=== PATIENT | female | born 1985 | race Caucasian/White ===

== ENCOUNTER 2020-09-06 15:25 | Emergency (ER) | payer MEDICAID, SELFPAY ==
[2020-09-06 15:26] VITALS: BP 159/110; PULSE 91; RESP 16; TEMP 35.8; O2SAT 97; BMI 38.4
--- NOTE | 2020-09-06 15:52 | CT_ITS ---
STUDY: CT ABDOMEN AND PELVIS WITH CONTRAST REASON FOR EXAM: Female, 35 years old. Abdomen pain and cramping x 2 months, nausea now RADIATION DOSAGE (If Supplied By Facility): CTDIvol = ( 15.41 ) mGy, DLP = ( 1331.84 ) mGycm TECHNIQUE: Transaxial images were obtained from the dome of the diaphragm to the symphysis pubis without oral contrast. IV 100mL Isovue-300 was administered. Sagittal and coronal images were reconstructed. Individualized dose optimization techniques were used for this CT. COMPARISON: None. FINDINGS: The visualized lung bases are unremarkable. The visualized portions of the heart are within normal limits. Normal liver. Normal gallbladder and extrahepatic biliary system. Normal spleen. Normal pancreas. Normal bilateral adrenal glands. Normal right kidney. Normal left kidney. Normal visualized stomach. Normal small intestine. Normal colon. The appendix is visualized and appears normal. Normal abdominal aorta. Normal inferior vena cava. Normal retroperitoneum. Normal urinary bladder. Normal abdominal wall. Normal osseous structures. CT/Abdomen/Pelvis W IV Cont ONLY IMPRESSION: Normal enhanced CT of the abdomen and pelvis. Electronically Signed: Rosaline Lutz MD at 19:46 EST , Service support ,
--- NOTE | 2020-09-06 15:53 | ED.DCSUM_ITS ---
History of Present Illness Chief Complaint: Abd Pain Informant: Patient Narrative: 35-year-old female with no significant past medical history presents with concern for lower abdominal pain. States it began 2 months ago. Initially was intermittent but sharp in nature. Was seen by her [employer]ER twice with a negative urine as well as 2 - exams. Patient did somewhat recently have a reactive lymph node which she had ultrasounds of in her right groin which were negative for any acute process. States that her [employer]ER was going to order a transvaginal ultrasound following her next period. States that she continues to have pain and is concerned. Denies any vaginal discharge or bleeding. Last menstrual period was 2 weeks ago. Past Medical History - Allergies and Home Meds Allergies/Adverse Reactions: Allergies kiwi Allergy (Verified 05/02/16 22:15) Rash Primary Care Physician: Serene Luevano MD [STAFF PHYSICIAN] - Prior records reviewed: Yes Past Medical History: None Surgical History: - - c section x 2 Lives: With Family Smoking Status: Never smoker Alcohol: None Drugs: None Review of Systems General: Denies: Chills, Fever, Sweats Eyes: Denies: Visual changes - bilaterally, Diplopia ENT: Denies: Rhinorrhea, Sore throat Cardiovascular: Denies: Chest pain, Palpitations Respiratory: Denies: Dyspnea, Cough, Dyspnea on exertion Gastrointestinal: Reports: Abdominal pain. Denies: Nausea, Vomiting, Diarrhea, Melena, Hematochezia Genitourinary: Denies: Dysuria, Hematuria, Frequency Musculoskeletal: Denies: Back pain, Extremity Pain Skin: Denies: Rash, Wounds Neurological: Denies: Headache, Weakness, Numbness Physical Exam Vital Signs/Narrative: Vital Signs Temp Pulse Resp BP Pulse Ox 09/06/20 15:26 96.4 F L 91 16 159/110 H 97 General: Well nourished, Well developed, No Acute Distress Head: Normocephalic, Atraumatic Eyes: Perrl, EOMI ENT: Moist mucous membranes, No rhinorrhea Neck: Supple, Nontender Cardiovascular: Regular rate, Regular rhythm, No murmurs Respiratory: No distress, CTA bilaterally, Chest nontender Abdomen: Soft, Nondistended, Normal bowel sounds, - - RLQ TTP. Back: Nontender, Normal Inspection Extremities: Nontender, No edema Skin: Normal color, No rash Neurological: Alert, Oriented x3, Cranial nerves II-XII grossly intact, Normal Strength, Normal Sensation Psychological: Normal affect, Normal Mood Diagnostic/Tx/Re-eval Laboratory Data 09/06/20 09/06/20 09/06/20 16:00 16:00 16:04 WBC 5.1 RBC 4.41 Hgb 12.9 Hct 39.0 MCV 88.4 MCH 29.3 MCHC 33.1 RDW Std Deviation 40.4 RDW Coeff of Barbara 12.6 Plt Count 231 MPV 9.7 Immature Gran % (Auto) 0.400 Neut % (Auto) 55.6 Lymph % (Auto) 32.3 [place] % (Auto) 8.8 Eos % (Auto) 2.5 Baso % (Auto) 0.4 Absolute Neuts (auto) 2.8 Absolute Lymphs (auto) 1.65 Nucleated RBC % 0 Sodium 141 Potassium 4.2 Chloride 110 H Carbon Dioxide 31.0 Anion Gap 0 L BUN 10 Creatinine 0.65 Estim Creat Clear Calc 123.84 Est GFR (MDRD) Af Amer 132 Est GFR (MDRD) Non-Af 109 BUN/Creatinine Ratio 15.4 Glucose 86 Calcium 8.6 Total Bilirubin 0.40 AST 26 ALT 37 Alkaline Phosphatase 46 Total Protein 6.6 Albumin 3.4 Globulin 3.2 Albumin/Globulin Ratio 1.1 Lipase 92 Urine Color Yellow Urine Clarity Clear Urine pH 6.5 Ur Specific [place] 1.010 Urine Protein Negative Urine Glucose (UA) Normal Urine Ketones Negative Urine Occult Blood 25 H Urine Nitrite Negative Urine Bilirubin Negative Urine Urobilinogen Normal Ur Leukocyte Esterase 25 H Urine RBC 0-5 SEEN Urine WBC 0-5 SEEN Ur Squamous Epith Cells 0-5 SEEN Urine Bacteria RARE Urine Mucus 0 SEEN Urine Test Negative - Medical Decision Making Appears well nontoxic. Vital signs within normal limits. Lab work within normal limits. CT pending. Given a negative CT as well as transvaginal ultrasound patient will be asked to follow-up with her [employer] as well as primary care. Patient signed out to Dr. Odom. ED Disposition - Plan for ED Patient: Referrals: Serene Luevano MD [STAFF PHYSICIAN] -
[2020-09-06 16:24] LABS: Mucous, Urine 0 SEEN /hpf (<or=2+)
[2020-09-06 16:30] LABS: Absolute Lymphocyte Count 1.65 X10^3/uL (0.83-4.51); Absolute Neutrophil Count 2.8 X10^3/uL (2.0-7.7); Basophil# 0.02 X10^3/uL; Basophil% 0.4 % (0-1); Eosinophil# 0.13 X10^3/uL; Eosinophils% 2.5 % (0-5); Hemoglobin 12.9 g/dL (12.0-15.0); Lymphocyte # 1.65 X10^3/ul (4.0); Lymphocyte % 32.3 % (19-41); Mean Corp Hgb Conc 33.1 g/dL (32-36); Mean Corpuscular Hgb 29.3 pg (27.0-32.0); Mean Corpuscular Volume 88.4 fL (81-99); Mean Platelet Vol. 9.7 fl (6.2-12.0); Monocyte# 0.45 X10^3/uL; Monocyte% 8.8 % (0-10); NRBC Flagged by Analyzer 0 % (0-5); Neutrophil # 2.84 X10^3/uL (2.7-7.7); Neutrophil % 55.6 % (47-70); Platelet Count 231 K/mm3 (150-450); RBC Distribution Width CV 12.6 % (11.6-14.6); RBC Distribution Width SD 40.4 fl (35.1-43.9); Red Blood Count 4.41 M/mm3 (4.2-5.4); White Blood Count 5.1 K/mm3 (4.4-11.0)
[2020-09-06 16:44] LABS: Color, Urine Yellow (Yellow); Glucose, Dipstick Normal (Normal); Ketone-Dipstick Negative (Negative); Leukocyte Esterase-Dipstick 25 /ul (Negative); Nitrite-Dipstick Negative (Negative); Occult Blood-Urine 25 /ul (Negative); Protein-Dipstick Negative (Negative); Urine Bilirubin Dipstick Negative (Negative); Urine Clarity Clear (Clear); Urine Urobilinogen Normal (Normal); Urine pH 6.5 (5.0 - 8.0)
[2020-09-06 16:48] LABS: ALB/GLOB Ratio 1.1 RATIO (0.9-2.4); AST(SGOT) 26 U/L (15-37); Alanine Aminotransfer ALT/SGPT 37 U/L (13-56); Albumin, Serum 3.4 g/dL (3.2-5.0); Alkaline Phosphatase 46 U/L (45-117); Anion Gap 0 (5-15); BUN 10 mg/dL (7-18); BUN/Creat Ratio 15.4 RATIO (10-20); Calcium,Total 8.6 mg/dL (8.5-10.1); Chloride 110 mmol/L (98-107); Creatinine, Serum 0.65 mg/dL (0.55-1.02); EST Glomerular Filtration Rate 109 mL/min (>60); Est Glom Filt Rate - Afr Amer 132 mL/min (>60); Estimated Creatinine Clearance 123.84 ml/min; Globulin 3.2 g/dL (2.2-4.2); Glucose 86 mg/dL (74-106); Lipase 92 U/L (73-393); Potassium 4.2 mmol/L (3.5-5.1); Protein, Total 6.6 g/dL (6.4-8.2); Sodium Level 141 mmol/L (136-145)
[2020-09-06 17:14] LABS: Bacteria RARE /hpf (None Seen); Red Blood Cells-Urine 0-5 SEEN /hpf (0-5); Squamous Epithelial Cells - UA 0-5 SEEN /hpf (5-10); White Blood Cells 0-5 SEEN /hpf (0-5)
[2020-09-06 17:15] LABS: Internal QC Validated? YES +Cl - CLEAR BKGD; Pregnancy, Urine Negative Negative
--- NOTE | 2020-09-06 20:01 | US_ITS ---
STUDY: ULTRASOUND TRANSVAGINAL CLINICAL: Female, 35 years old. PELVIC PAIN TECHNIQUE: Transvaginal real-time exam with grayscale images documentation. COMPARISON: None. FINDINGS: The uterus is anteverted in midline measuring 9.0 x 5.8 x 5.1 cm. Normal endometrial thickness measuring 8 mm. There are no endometrial masses, and there is no fluid in the endometrial cavity. Nabothian cyst of the cervix. The right ovary measures 2.7 x 2.1 x 1.5 cm. There is a septated cyst or cyst within a cyst measuring 1.1 x 1.2 x 0.8 cm. Normal DOPPLER. The left ovary is 3.7 x 2.9 x 2.2 cm. There is a 2.0 x 1.8 x 1.0 cm cyst of the left ovary. Normal DOPPLER. Minimal free fluid. Polycystic ovary disease: No. US/Transvaginal Non- IMPRESSION: Normal uterus. Normal size of the right ovary with normal DOPPLER flow. Cyst within a cyst measuring 1.1 x 1.2 x 0.8 cm consistent with a stimulated or dominant follicle. Normal size of the left ovary with normal DOPPLER flow. 2.0 x 1.8 x 1.0 cm simple cyst of the left ovary. No additional adnexal masses, minimal free fluid. Electronically Signed: Rosaline Lutz MD at 21:34 EST , Service support ,
--- NOTE | 2020-09-06 21:52 | ED.DEP ---
ED Disposition - Plan for ED Patient: Instructions: ED Abdominal Pain Unkn Cause Fem Referrals: Serene Luevano MD [STAFF PHYSICIAN] -
[2020-09-06 22:11] VITALS: RESP 17
== END 2020-09-06 22:12 | disposition home or self-care (01) ==
LOC: ED 16:26
PROVIDERS: Emergency Provider Emergency Medicine; PCP Physician Assistant
DX: N83.292 Other ovarian cyst, left side (principal)
CPT/HCPCS: 74177; 76830; 80053; 81001; 81025; 83690; 85025; 93976; 99283; Q9967; A4216

== ENCOUNTER 2020-11-03 15:31 | Emergency (ER) | payer MEDICAID, SELFPAY ==
[2020-11-03 15:33] VITALS: BP 152/92; PULSE 73; RESP 16; TEMP 36.4; O2SAT 100; BMI 38.7
--- NOTE | 2020-11-03 15:53 | VDLE_ITS ---
Reason For Study: PAIN RIGHT GSV is normal. CFV is compressible, spontaneous, phasic, competent and demonstrates normal augmentation. FV is compressible, spontaneous, phasic, competent and demonstrates normal augmentation. POP V is compressible, spontaneous, phasic, competent and demonstrates normal augmentation. T/P Trunk is compressible. PTV is compressible. RT PerV is compressible. Procedure Exam performed portable in ED. The study was technically difficult. A preliminary report was called and/or faxed to ED. Interpretation Summary Deep veins of the right lower extremity are patent and compressible segmentally. There is no evidence of right lower extremity deep vein thrombosis. Valvular competence appears intact within the proximal deep venous system on the right . The right great saphenous vein appears patent and compressible segmentally. Ordering Physician: Eric Encinas Referring Physician: GOMEZ HOOKS Performed By: Natividad Harding, LISA, RVT
--- NOTE | 2020-11-03 16:00 | RAD_ITS ---
STUDY: X-RAY - RIGHT TIBIA AND FIBULA REASON FOR EXAM: Female, 35 years old. Right lower leg pain. TECHNIQUE: view(s) of the tibia and fibula were obtained. COMPARISON: None. FINDINGS: Normal visualized tibia. Normal visualized fibula. The soft tissue structures are unremarkable. RAD/Tibia & Fibula 2 Views IMPRESSION: No abnormality of the right tibia or fibula. Electronically Signed: Dain Cotton MD at 16:16 EST , Service support ,
--- NOTE | 2020-11-03 16:18 | ED.VIS.GEN ---
History of Present Illness Chief Complaint: Lower Extremity Injury Informant: Patient Narrative: 35-year-old female presents with right lateral leg pain of 1 months duration. She points to the mid to proximal lateral muscle bellies as the source of the area that bothers her. She states in the past couple days it seems to be spreading proximally up towards her knee. She denies any injury. No swelling. She messaged her doctor and they can see her Friday. Because the pain seemed to change in its location she wanted to come and be seen so she went to urgent care and they recommend her coming to emergency out of concern for DVT. Patient with no rashes. No DVT PE risk factors. No trauma. Past Medical History - Allergies and Home Meds Allergies/Adverse Reactions: Allergies kiwi Allergy (Verified 11/03/20 15:56) Rash Primary Care Physician: Lamar Tam PA [Primary Care Provider] - Surgical History: - - c section x 2 Smoking Status: Never smoker Drugs: None Review of Systems General: Denies: Chills, Fever, Sweats Eyes: Denies: Visual changes - bilaterally, Diplopia ENT: Denies: Rhinorrhea, Sore throat Cardiovascular: Denies: Chest pain, Palpitations Respiratory: Denies: Dyspnea, Cough, Dyspnea on exertion Gastrointestinal: Denies: Abdominal pain, Nausea, Vomiting, Diarrhea, Melena, Hematochezia Genitourinary: Denies: Dysuria, Hematuria, Frequency Musculoskeletal: Reports: Extremity Pain. Denies: Back pain, Swelling Skin: Denies: Rash, Wounds Neurological: Denies: Headache, Weakness, Numbness Physical Exam Vital Signs/Narrative: Vital Signs Temp Pulse Resp BP Pulse Ox 11/03/20 15:33 97.6 F L 73 16 152/92 H 100 Inital Vital Signs reviewed: Yes General: Well nourished, Well developed, Obese, No Acute Distress Head: Normocephalic, Atraumatic Eyes: Perrl, EOMI ENT: Moist mucous membranes, No rhinorrhea Neck: Supple, Nontender Cardiovascular: Regular rate, Regular rhythm, No murmurs Respiratory: No distress, CTA bilaterally, Chest nontender Abdomen: Soft, Nontender, Nondistended, Normal bowel sounds Back: Nontender, Normal Inspection Extremities: Nontender, No edema, - - I appreciate no knee exam findings. There is no cords. No significant tenderness on palpation. No swelling between the 2 extremities. No rashes Skin: Normal color, No rash Neurological: Alert, Oriented x3, Cranial nerves II-XII grossly intact, Normal Strength, Normal Sensation Psychological: Normal affect, Normal Mood Diagnostic/Tx/Re-eval Clinical Impression(s) from Imaging Studies Tibia/Fibula X-Ray 11/03/20 16:00 IMPRESSION: No abnormality of the right tibia or fibula. Electronically Signed: Dain Cotton MD at 16:16 EST , Service support , - Medical Decision Making My interpretation of the 2 view tib-fib x-rays are negative for acute. Duplex ultrasound is negative for DVT. Patient was advised to arrange follow-up with her doctor. If continued symptoms she may benefit from MRI of the lower extremity looking for discrete muscle pathology. ED Disposition - Plan for ED Patient: Disposition: Home or Assisted Living Diagnosis: Right leg pain Instructions: ED Pain, Acute, Uncertain Cause Referrals: Lamar Tam, PA [Primary Care Provider] - As soon as possible
== END 2020-11-03 16:43 | disposition home or self-care (01) ==
PROVIDERS: Emergency Provider Emergency Medicine; PCP Physician Assistant
DX: M79.604 Pain in right leg (principal); E66.9 Obesity, unspecified
CPT/HCPCS: 73590; 93971; 99282

== ENCOUNTER → 2021-03-28 15:08 | Outpatient (CLI) | payer MEDICAID, SELFPAY | PROVIDERS: PCP Physician Assistant; Visit Provider Otolaryngology Otolaryngology/Facial Plastic Surgery | DX: J02.9 Acute pharyngitis, unspecified (principal) | CPT/HCPCS: 87070 ==

== ENCOUNTER → 2021-09-04 09:26 | Outpatient (CLI) | payer MEDICAID, SELFPAY ==
--- NOTE | 2021-09-04 09:30 | RAD_ITS ---
INDICATION: DYSPHAGIA EXAMINATION/TECHNIQUE: Barium oral contrast and gas bubbles were administered to the patient. Total Fluoroscopic Time: 1 minute 10 seconds AND number of Fluoroscopic Images: 13 spot images and 20 cine clip images COMPARISON: None. FINDINGS: No masses or strictures are identified. There is no hiatal hernia. The mucosal pattern is unremarkable. There is normal motility. Reflux was not elicited. RAD/Esophagus Single Contrast IMPRESSION: No significant findings. Electronically Signed: Presley Shultz MD at 15:45 EST Tel , Service support ,
== END ==
PROVIDERS: PCP Physician Assistant; Referring Provider Otolaryngology Otolaryngology/Facial Plastic Surgery; Visit Provider Otolaryngology Otolaryngology/Facial Plastic Surgery
DX: R13.10 Dysphagia, unspecified (principal)
CPT/HCPCS: 74220

== ENCOUNTER 2022-06-06 05:52 | Day surgery (SDC) | payer MEDICAID, SELFPAY ==
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
[2022-06-06 06:31] LABS: Hematocrit 39.1 % (37-47); Hemoglobin 12.9 g/dL (12.0-15.0); Mean Corpuscular Hgb 29.3 pg (27.0-32.0); Mean Corpuscular Volume 88.7 fL (81-99); Mean Platelet Vol. 9.5 fl (6.2-12.0); Platelet Count 211 K/mm3 (150-450); RBC Distribution Width CV 12.3 % (11.6-14.6); RBC Distribution Width SD 39.7 fl (35.1-43.9); Red Blood Count 4.41 M/mm3 (4.2-5.4)
[2022-06-06 06:34] LABS: Internal QC Validated? YES +Cl - CLEAR BKGD; Pregnancy, Urine Negative Negative
[2022-06-06 06:35] VITALS: BP 149/96; PULSE 69; RESP 16; TEMP 36.7; O2SAT 98; BMI 42.3
[2022-06-06] MEDS: Lactated Ringers 1,000 ML 15 ML IV ×2 (06:43→08:55)
[2022-06-06 06:49] LABS: Anion Gap 6 (5-15); BUN 14 mg/dL (7-18); BUN/Creat Ratio 20.6 RATIO (10-20); Calcium,Total 8.9 mg/dL (8.5-10.1); Chloride 109 mmol/L (98-107); Creatinine, Serum 0.68 mg/dL (0.55-1.02); EST Glomerular Filtration Rate 103 mL/min (>60); Est Glom Filt Rate - Afr Amer 124 mL/min (>60); Estimated Creatinine Clearance 112.05 ml/min; Glucose 126 mg/dL (74-106); Potassium 3.6 mmol/L (3.5-5.1); Sodium Level 142 mmol/L (136-145)
--- NOTE | 2022-06-06 07:30 | FALS_PTH ---
PATIENT: NAM ALEJANDRO LOC: [facility] [place] U#:[id number] AGE/SX: 37/F ROOM: RE06/06/[address]: Dr. Suni Kaba, MDDOB: 1985 BED: DIS: 06/06/2022 SPEC #: [id number] RECD: 06/06/22 09:53 STATUS: DHARA MULLINSMartínez #: [id number] ARUNA: 06/06/22 07:[address]: Suni Kaba DEPT: SURGICAL PATHOLOGY RECD BY: Larissa Whitehead ENTERED: 06/06/22 11:10 SP TYPE: FALL TUBES OTHR DR: MARIFER Corrales Tissues: Fallopian tube Procedures: Surgery Specimen Level II HEADER OPERATION: Laparoscopic salpingectomy PRE-OP DIAGNOSIS: Elective sterilization TISSUE SUBMITTED: Bilateral fallopian tubes MICROSCOPIC DIAGNOSIS Bilateral fallopian tubes, salpingectomy: Bilateral fallopian tubes, no pathologic diagnosis. GRIFFIN:jose 06/07/2022 MICROSCOPIC DESCRIPTION Slides are reviewed. GROSS DESCRIPTION Received in fixative is one container labeled with the patient's name and designated bilateral fallopian tubes. The specimen consists of bilateral fallopian tubes including fimbrial ends. One fallopian tube measures 7 cm in length and 0.5 cm in diameter. The second fallopian tube is received in multiple pieces and proximal end measures 5 cm in length and 0.5 cm in diameter. The distal end with fimbrial end measures 2.5 cm in length and 0.5 cm in diameter. Two detached fragments of fimbrial ends are also noted measuring in aggregate 1 x 0.7 x 0.2 cm. The fallopian tubes are not identified as right or left. Sections reveal unremarkable cut surfaces. [place] sections are submitted in two cassettes as follows: 1 ? intact fallopian tube, 2 ? second fallopian tube in multiple pieces. / GRIFFIN:jose 06/06/2022 TC:4 CPT: 59330 x2
[2022-06-06] MEDS: Bupivacaine 0.25% 30 ML Vial (08:33)
--- NOTE | 2022-06-06 08:35 | PCM.OPRPT ---
Report of Operation Date of Procedure: 06/06/22 Pre-Operative Diagnosis: Desires sterilization Post-Operative Diagnosis: same, left ovarian cyst Surgery/Procedure Performed:: Laparoscopic bilateral salpingectomy Description of Surgical Findings:: Left complex appearing cyst approximately 5cm. Surgeon: Suni Kaba explosives mixer operator: None Type of Anesthesia: General, Local and None Specimen's removed: bilateral fallopian tubes Drains: none Estimated Blood Loss (mL): 5 Fluids Replaced: 1000 Description of Procedure: After informed consent was obtained patient was taken to the operating room she was placed in supine position she was given anesthesia. She was then placed in the [facility] stirrups and she was prepped and draped in normal sterile fashion. Bladder was drained prior to the start of procedure. At this time attention was turned to the vaginal portion where weighted speculum placed at posterior fornix vagina single-tooth tenaculum was used to gently grasp the internal the cervix. uterus was gently sounded to approximately 8 cm. Uterine manipulator was placed without difficulty. Legs then placed in parallel with the abdomen the tenaculum and the weighted speculum were removed. 2 towel clamps were placed at level of umbilicus. Marcaine was injected infraumbilical and a small incision was made. The 5 mm trocar was placed under direct visualization. CO2 gas was used to insufflate the intra-abdominal cavity. Upon inspection 5cm left ovarian complex cyst- the uterus tubes (small paratubal cyst bilaterally) appeared to be normal. At this time then the LLQ and RLQ ports were placed First Marcaine was injected and small incision was made a knife and the 5 mm trocars were placed. At this time then tubes were traced back to the fimbriated ends. Enseal was used to coagulate and ligate along mesosalpinx bilaterally until tubes removed completely. Good hemostasis was appreciated. At this time procedure was deemed complete successful. The gas was desufflated on from the intra-abdominal cavity. The trochars were removed. Skin was closed using 4-0 Monocryl in a subcutaneous fashion. Dermabond glue was placed. Instrument lap and needle counts were correct ?2. The uterine manipulator was removed. Vaginal sweep was performed it was negative. There were no complications anticipated normal postoperative course for this patient. Grafts/Implants Used: none Procedure Start Time: 08:12 Procedure Stop Time: 08:34 Complications none Admit VTE Documentation VTE Present on Admission: Yes VTE Mechan Device Prophylaxis: SCD's VTE Pharm Prophylaxis ordered?: No Reason prophylaxis not ordered:: Procedure Not Indicated
--- NOTE | 2022-06-06 08:39 | DCINST_ITS ---
Discharge Instructions Procedure Other Diet Discharge Diet: No restrictions Activity May resume sexual activity in: 2 weeks Lifting Restrictions: 20-25 lbs Dressing / Incision Call your doctor if your incision/area has: Continuous Slow Oozing, Sudden Increased Bleeding, Increased Pain/ Swelling, Increased Redness, Foul Smelling Discharge and Swelling at the incision site Call your doctor if you observe: Fever of 101 or Higher, Inability to urinate, Inability to have a bowel movement, Using more than 1 pad per hour and Uncontrolled pain Additional Dressing/Incision Instructions:: You have skin glue over your incision sites, do not pick off. You may shower and let the soap and water run over the incision sites and dab dry. Follow Up Care Please Follow Up With: Suni Kaba MD When: 1-2 weeks post OP if you need an appointment please call [phone] Test Results: Test results from this visit will be discussed in further detail at your follow- up appointment, if applicable. Discharge Plan Admission Attending Provider: Suni Kaba Primary Care Provider: Lamar Tam Discharge Orders/Prescriptions Prescriptions: No Action Therems-M 1 TABLET tablet 1 tab PO DAILY lisinopril 20 MG tablet 30 mg PO QHS sertraline 100 MG tablet 200 mg PO QHS hydrochlorothiazide 12.5 MG capsule 12.5 mg PO DAILY Cholecalciferol (Vitamin D3) [Vitamin D3] 5,000 UNIT capsule 1 cap PO DAILY fluticasone propion-salmeterol [Advair Diskus] 250-50 mcg/dose blister with d evice 1 inh INHALATION BID Label Comments: INHALE 1 PUFF DIRECTED TWICE DAILY aspirin 325 mg Tablet 325 mg PO QHS selenium 200 mcg Tablet 200 mcg PO DAILY ascorbic acid (vitamin C) [Vitamin C] 500 mg Tablet 500 mg PO DAILY pantoprazole 40 mg tablet,delayed release (DR/EC) 40 mg PO BID Label Comments: take 1 tablet by mouth twice a day BEFORE MEALS.TAKE ON AN EMPTY STOMACH, 30 MINUTES BEFORE A MEAL buspirone 10 mg tablet 15 mg PO BID Label Comments: take 1 tablet by mouth three times a day zinc 50 mg Tablet 50 mg PO DAILY topiramate 100 mg tablet 100 mg PO DAILY Probiotic 10 billion cell Capsule 10,000 mmu cells PO DAILY Referrals / Follow Up: Tam,M Alonso PA, PA [Primary Care Provider] - Disposition Disposition (needs filled in before D/C Order can be placed): Home, Self Care
[2022-06-06 08:50] VITALS: BP 149/96; BP 167/90; PULSE 89; RESP 18; TEMP 36.4; O2SAT 90
[2022-06-06 09:00] VITALS: BP 149/96; BP 161/85; PULSE 78; RESP 16; O2SAT 93
[2022-06-06 09:02] VITALS: BP 149/96; PULSE 70; RESP 16; TEMP 36.4; O2SAT 93
[2022-06-06 09:09] VITALS: BP 149/96; BP 153/86; PULSE 65; RESP 18; TEMP 36.4; O2SAT 93
[2022-06-06 09:46] VITALS: BP 148/86; BP 149/96; PULSE 71; RESP 18; TEMP 36.3; O2SAT 95
== END 2022-06-06 09:58 | disposition home or self-care (01) ==
LOC: SDC 05:53 → AC 05:54
PROVIDERS: Anesthesiology; PCP Physician Assistant; Referring Provider Obstetrics & Gynecology; Visit Provider Obstetrics & Gynecology
PROC: (CPT 58661; principal; 2022-06-06 07:15)
DX: Z30.2 Encounter for sterilization (principal); N83.202 Unspecified ovarian cyst, left side; I10 Essential (primary) hypertension; Z86.73 Personal history of transient ischemic attack (TIA), and cerebral infarction without residual deficits
CPT/HCPCS: 58661; 00840; 80048; 81025; 85027; 88302; J7120; C1760; J2405

== ENCOUNTER 2022-06-29 08:48 | Emergency (ER) | payer MEDICAID, SELFPAY ==
[2022-06-29 08:49] VITALS: BP 148/109; PULSE 80; RESP 18; TEMP 36.3; O2SAT 96; BMI 41.3
[2022-06-29 08:52] VITALS: BP 151/87; PULSE 80; RESP 18; TEMP 36.3; O2SAT 96
--- NOTE | 2022-06-29 09:17 | US_ITS ---
STUDY: RENAL ULTRASOUND - COMPLETE REASON FOR EXAM: Female, 37 years old. hematuria TECHNIQUE: Ultrasound evaluation of the kidneys was performed with real-time and static christopher-scale imaging. COMPARISON: None. FINDINGS: RIGHT KIDNEY: Normal location of the right kidney, which is normal in size. The right kidney measures 12.2 cm. There is a normal cortex of the right kidney. The renal cortex measures 2.5 cm. There is no right renal mass or cyst. There are no right renal calculi. There is no right hydronephrosis. DISTAL RIGHT URETER: There is non-visualization of the distal right ureter. There is no demonstrated right ureterovesical junction calculus. There is a visualized right ureteral jet. LEFT KIDNEY: Normal location of the left kidney, which is normal in size. The left kidney measures 12.8 cm. There is a normal cortex of the left kidney. The renal cortex measures 2.6 cm. There is no left renal mass or cyst. There are no left renal calculi. There is no left hydronephrosis. DISTAL LEFT URETER: There is non-visualization of the distal left ureter. There is no demonstrated left ureterovesical junction calculus. There is a visualized left ureteral jet. BLADDER: The distended urinary bladder has a volume of 57 ml. The empty urinary bladder has a volume of ml. There is a normal wall thickness of the distended urinary bladder. There is no demonstrated mass within the urinary bladder. There are no demonstrated bladder calculi. US/Kidney and Bladder IMPRESSION: Normal ultrasound of the kidneys and urinary bladder. Electronically Signed: Elkin Leon MD at 10:57 EDT ,
[2022-06-29 09:30] LABS: Bacteria 0 SEEN /hpf (None Seen); Color, Urine Red (Yellow); Glucose, Dipstick Normal (Normal); Ketone-Dipstick Negative (Negative); Leukocyte Esterase-Dipstick 500 /ul (Negative); Mucous, Urine 0 SEEN /hpf (<or=2+); Nitrite-Dipstick Negative (Negative); Occult Blood-Urine 250 /ul (Negative); Protein-Dipstick 100 mg/dl (Negative); Squamous Epithelial Cells - UA 0 SEEN /hpf (5-10); Urine Bilirubin Dipstick Negative (Negative); Urine Clarity Cloudy (Clear); Urine Urobilinogen Normal (Normal)
[2022-06-29 09:38] LABS: Red Blood Cells-Urine > 100 SEEN /hpf (0-5); White Blood Cells 5-10 SEEN /hpf (0-5)
--- NOTE | 2022-06-29 09:40 | EDS_ITS ---
HPI HPI - Female History of Present Illness Chief Complaint: Abd Pain Narrative Narrative: 37-year-old female presenting with abdominal pain. She states its crampy in nature and is bilateral in the pelvis. She does not know if she is starting her period or not. Patient does report that she recently had her fallopian tubes removed by Dr. Vizcarra. This was on 06/06/2022. Patient also had upper and lower endoscopy performed 05/10/[address] Blanco. Patient states that she had problems in the past with abdominal pain and she states that she would previously come to the ER and have multiple CAT scans which she does not want to have anymore this is why she has been having these procedures done. She states that she had a lot of radiation exposure in the past. Today she is stating that she felt unwell last evening and took a hot bath and this morning woke up with blood in her urine. She does not have any history of kidney stones. She does not have dysuria. She is not describing flank pain but does state that she gets sweaty and nauseous sometimes. [facility] Medical History Anxiety Asthma Back pain Contact with and (suspected) exposure to other viral communicable diseases Gastric reflux History of echocardiogram History of IBS History of steroid therapy Hypertension Injury of head and neck Non-smoker TIA (transient ischemic attack) URI (upper respiratory infection) Wears glasses Home Medications multivitamin,[id number]-[id number] 27 mg-0.4 mg tablet (Therems-M) 1 tab PO DAILY 04/07/15 [History Last Taken Unknown] lisinopril 20 mg tablet 30 mg PO QHS 04/12/16 [History Last Taken Unknown] Cholecalciferol (Vitamin D3) [Vitamin D3] 1 cap PO DAILY 11/03/20 [History Last Taken Unknown] hydrochlorothiazide 12.5 mg capsule 12.5 mg PO DAILY 11/03/20 [History Last Taken Unknown] sertraline 100 mg tablet 200 mg PO QHS 11/03/20 [History Last Taken Unknown] Lactobacillus acidophilus 10 billion cell capsule (Probiotic) 10,000 mmu cells PO DAILY 05/29/22 [History Last Taken Unknown] ascorbic acid (vitamin C) 500 mg tablet (Vitamin C) 500 mg PO DAILY 05/29/22 [History Last Taken Unknown] aspirin 325 mg tablet 325 mg PO QHS 05/29/22 [History Last Taken Unknown] buspirone 10 mg tablet 15 mg PO BID 05/29/22 [History Last Taken Unknown] fluticasone 250 mcg-salmeterol 50 mcg/dose blistr powdr for inhalation (Advair Diskus) 1 inh inhalation BID 05/29/22 [History Last Taken Unknown] pantoprazole 40 mg tablet,delayed release 40 mg PO BID 05/29/22 [History Last Taken Unknown] selenium 200 mcg tablet 200 mcg PO DAILY 05/29/22 [History Last Taken Unknown] topiramate 100 mg tablet 100 mg PO DAILY 05/29/22 [History Last Taken Unknown] zinc 50 mg tablet 50 mg PO DAILY 05/29/22 [History Last Taken Unknown] phenazopyridine 200 mg tablet (Pyridium) 200 mg PO TID PRN pain 6 doses #6 tabs 06/29/22 [Rx Last Taken Unknown] Allergy/AdvReac Type Severity Reaction Status Date / Time kiwi Allergy Rash Verified 06/29/22 08:52 Surgical History Hx of brain surgery Hx of section Hx of colonoscopy Social History Smoking Status: Never smoker EXAM Physical Exam Const Vital Signs: 06/29/22 08:49 06/29/22 08:52 06/29/22 11:34 Temperature 97.4 F L 97.4 F L 97.8 F Temperature Source Temporal Temporal Temporal Pulse Rate 80 80 69 Respiratory Rate 18 18 16 Blood Pressure 148/109 H 151/87 H 137/76 H Blood Pressure Mean 122 108 96 Pulse Ox 96 96 97 Oxygen Delivery Method Room Air Room Air Room Air 06/29/22 12:27 Temperature Temperature Source Pulse Rate 78 Respiratory Rate 19 H Blood Pressure 148/85 H Blood Pressure Mean 106 Pulse Ox 97 Oxygen Delivery Method Room Air Positive well nourished General Appearance ED: NAD; Negative for pallor HEENT Reports moist mucous membranes Eyes PERRL and EOMs intact bilaterally Cardio regular rate and regular rhythm GI soft to palpation Back/Spine no CVA tenderness Extremity normal to inspection Neuro oriented x3 and CN's II-XII intact bilaterally Sensorium / Orientation: alert Motor Exam: strength 5/5 throughout Psych mental status grossly normal Skin no rashes or lesions noted and no wounds General Skin Exam: Negative for jaundice or pallor MDM MDM MDM Narrative Medical decision making narrative: Due to patient's concern for radiation I did order basic lab work and a urinalysis. Her urinalysis shows hematuria without evidence of an infection. I will order an ultrasound of the kidneys?ureter?bladder. CBC and BMP are unremarkable. Ultrasound of the kidneys, ureter, bladder is normal. Patient counseled on findings. After initially not wanting a CAT scan she has more concerned and wishes to have a CAT scan of her abdomen pelvis because she feels uncomfortable. I did discuss with her that her blood work is normal. CT of the abdomen pelvis performed does show a 5.5 cm mass on the left ovary. Patient reports that she already knew of this ovarian cyst because her hospice manager thought when she did her fallopian tube removal. She is now stating that she has dysuria which started in the emergency room. Patient is counseled to follow-up with her [facility] and I gave her referral for urology. Impression: 1. Hematuria 2. Dysuria Lab Data Attestation: I reviewed the patient's lab results. Labs: Laboratory Results - last 24 hr 06/29/22 06/29/22 06/29/22 09:25 09:45 09:45 WBC 8.1 RBC 4.48 Hgb 12.8 Hct 40.0 MCV 89.3 MCH 28.6 MCHC 32.0 RDW Std Deviation 40.2 RDW Coeff of Barbara 12.4 Plt Count 281 MPV 9.4 Immature Gran % (Auto) 0.400 Neut % (Auto) 72.2 H Lymph % (Auto) 18.3 L [place] % (Auto) 7.1 Eos % (Auto) 1.5 Baso % (Auto) 0.5 Absolute Neuts (auto) 5.8 Absolute Lymphs (auto) 1.48 Nucleated RBC % 0 Sodium 143 Potassium 3.6 Chloride 107 Carbon Dioxide 29.0 Anion Gap 7 BUN 11 Creatinine 0.61 Estim Creat Clear Calc 129.40 Est GFR (MDRD) Af Amer 139 Est GFR (MDRD) Non-Af 115 BUN/Creatinine Ratio 17.9 Glucose 120 H Calcium 8.9 Urine Color Red Urine Clarity Cloudy Urine pH 6.0 Ur Specific Dunn 1.010 Urine Protein 100 H Urine Glucose (UA) Normal Urine Ketones Negative Urine Occult Blood 250 H Urine Nitrite Negative Urine Bilirubin Negative Urine Urobilinogen Normal Ur Leukocyte Esterase 500 H Urine RBC > 100 SEEN Urine WBC 5-10 SEEN Ur Squamous Epith Cells 0 SEEN Urine Bacteria 0 SEEN Urine Mucus 0 SEEN Radiography Diagnostic Testing: Clinical Impression(s) from Imaging Studies Renal Ultrasound 06/29/22 09:17 IMPRESSION: Normal ultrasound of the kidneys and urinary bladder. Electronically Signed: Elkin Leon MD at 10:57 EDT Reading Location ID and State: [id number] / [employer] , Service support , Abdomen/Pelvis CT 06/29/22 11:29 IMPRESSION: 1. No renal or ureteral stone. 2. Fatty infiltration of the liver. 3. 5.5 cm mass left ovary correlation with pelvic ultrasound may be useful. Electronically Signed: Elkin Leon MD at 12:27 EDT Reading Location ID and State: [id number] / [employer] , Service support , Discharge Plan Triage Chief Complaint: Abd Pain ED Provider: Junaid Manzanares Dx/Rx/DC Orders Instructions: ED Dysuria, Uncertain Cause (Adult), ED Hematuria Prescriptions: New phenazopyridine [Pyridium] 200 mg tablet 200 mg PO TID PRN (Reason: pain) Qty: 6 0RF No Action Therems-M 1 TABLET tablet 1 tab PO DAILY lisinopril 20 MG tablet 30 mg PO QHS sertraline 100 MG tablet 200 mg PO QHS hydrochlorothiazide 12.5 MG capsule 12.5 mg PO DAILY Cholecalciferol (Vitamin D3) [Vitamin D3] 5,000 UNIT capsule 1 cap PO DAILY fluticasone propion-salmeterol [Advair Diskus] 250-50 mcg/dose blister with device 1 inh INHALATION BID Label Comments: INHALE 1 PUFF DIRECTED TWICE DAILY aspirin 325 mg Tablet 325 mg PO QHS selenium 200 mcg Tablet 200 mcg PO DAILY ascorbic acid (vitamin C) [Vitamin C] 500 mg Tablet 500 mg PO DAILY pantoprazole 40 mg tablet,delayed release (DR/EC) 40 mg PO BID Label Comments: take 1 tablet by mouth twice a day BEFORE MEALS.TAKE ON AN EMPTY STOMACH, 30 MINUTES BEFORE A MEAL buspirone 10 mg tablet 15 mg PO BID Label Comments: take 1 tablet by mouth three times a day zinc 50 mg Tablet 50 mg PO DAILY topiramate 100 mg tablet 100 mg PO DAILY Probiotic 10 billion cell Capsule 10,000 mmu cells PO DAILY Primary Care Provider: Lamar Tam Referrals: Teresa Sue MD [Med Staff - Active Staff] - 3-5 Days Lamar Tam PA [Primary Care Provider] - Disposition Disposition: Home, Self Care
[2022-06-29 09:57] LABS: Absolute Lymphocyte Count 1.48 X10^3/uL (0.83-4.51); Absolute Neutrophil Count 5.8 X10^3/uL (2.0-7.7); Basophil# 0.04 X10^3/uL; Basophil% 0.5 % (0-1); Eosinophil# 0.12 X10^3/uL; Eosinophils% 1.5 % (0-5); Hemoglobin 12.8 g/dL (12.0-15.0); Lymphocyte # 1.48 X10^3/ul (0.83-4.51); Lymphocyte % 18.3 % (19-41); Mean Corpuscular Hgb 28.6 pg (27.0-32.0); Mean Corpuscular Volume 89.3 fL (81-99); Mean Platelet Vol. 9.4 fl (6.2-12.0); Monocyte# 0.57 X10^3/uL; Monocyte% 7.1 % (0-10); NRBC Flagged by Analyzer 0 % (0-5); Neutrophil # 5.84 X10^3/uL (2.7-7.7); Neutrophil % 72.2 % (47-70); Platelet Count 281 K/mm3 (150-450); RBC Distribution Width CV 12.4 % (11.6-14.6); RBC Distribution Width SD 40.2 fl (35.1-43.9); Red Blood Count 4.48 M/mm3 (4.2-5.4); White Blood Count 8.1 K/mm3 (4.4-11.0)
[2022-06-29 10:04] LABS: Anion Gap 7 (5-15); BUN 11 mg/dL (7-18); BUN/Creat Ratio 17.9 RATIO (10-20); Calcium,Total 8.9 mg/dL (8.5-10.1); Chloride 107 mmol/L (98-107); Creatinine, Serum 0.61 mg/dL (0.55-1.02); EST Glomerular Filtration Rate 115 mL/min (>60); Est Glom Filt Rate - Afr Amer 139 mL/min (>60); Glucose 120 mg/dL (74-106); Potassium 3.6 mmol/L (3.5-5.1); Sodium Level 143 mmol/L (136-145)
--- NOTE | 2022-06-29 11:29 | CT_ITS ---
STUDY: CT ABDOMEN AND PELVIS WITHOUT CONTRAST REASON FOR EXAM: Female, 37 years old. hematuria RADIATION DOSAGE (If Supplied By Facility): CTDIvol = ( 23.13 ) mGy, DLP = ( 1248.46 ) mGycm TECHNIQUE: Transaxial images were obtained from the dome of the diaphragm to the symphysis pubis without oral contrast, and without intravenous contrast. Sagittal and coronal images were reconstructed. Individualized dose optimization techniques were used for this CT. COMPARISON: 09/06/2020 FINDINGS: The visualized lung bases are unremarkable. The visualized portions of the heart are within normal limits. There is decreased attenuation of the liver consistent with steatosis. Normal gallbladder and extrahepatic biliary system. Normal spleen. Normal pancreas. Normal bilateral adrenal glands. Normal right kidney. Normal left kidney. Normal visualized stomach. Normal small intestine. Normal colon. The appendix is visualized and appears normal. Normal abdominal aorta. Normal inferior vena cava. Normal retroperitoneum. Normal urinary bladder. 5.5 cm mass of the left ovary and pelvic ultrasound may be useful. Normal abdominal wall. There are diffuse degenerative changes of the visualized lumbar spine. CT/Abdomen/Pelvis without Cont IMPRESSION: 1. No renal or ureteral stone. 2. Fatty infiltration of the liver. 3. 5.5 cm mass left ovary correlation with pelvic ultrasound may be useful. Electronically Signed: Elkin Leon MD at 12:27 EDT ,
[2022-06-29 11:34] VITALS: BP 137/76; PULSE 69; RESP 16; TEMP 36.6; O2SAT 97
[2022-06-29 12:27] VITALS: BP 148/85; PULSE 78; RESP 19; O2SAT 97
[2022-06-29] MEDS: Phenazopyridine 95 MG Tablet 190 MG PO (12:44)
== END 2022-06-29 12:55 | disposition home or self-care (01) ==
PROVIDERS: Emergency Provider Student in an Organized Health Care Education/Training Program; PCP Physician Assistant; Visit Provider Student in an Organized Health Care Education/Training Program
DX: R31.9 Hematuria, unspecified (principal); N83.209 Unspecified ovarian cyst, unspecified side; R30.0 Dysuria; I10 Essential (primary) hypertension; N83.8 Other noninflammatory disorders of ovary, fallopian tube and broad ligament; Z86.73 Personal history of transient ischemic attack (TIA), and cerebral infarction without residual deficits; K21.9 Gastro-esophageal reflux disease without esophagitis
CPT/HCPCS: 74176; 76770; 80048; 81001; 85025; 87077; 87086; 87088; 87186; 99284; A4216

== ENCOUNTER 2022-09-11 15:01 | Emergency (ER) | payer MEDICAID, SELFPAY ==
[2022-09-11 15:02] VITALS: BP 161/116; PULSE 83; RESP 18; TEMP 36.6; O2SAT 97; BMI 43.0
[2022-09-11 15:20] VITALS: BP 160/98; PULSE 79; RESP 16; O2SAT 98
--- NOTE | 2022-09-11 15:20 | RAD_ITS ---
STUDY: X-RAY CHEST REASON FOR EXAM: Female, 37 years old. Weakness TECHNIQUE: Single AP portable view of the chest. COMPARISON: Comparison is made with prior examination of 06/14/2014. FINDINGS: EKG electrodes are seen. The lungs are clear and expanded. There is no demonstrated pleural abnormality. Normal size heart. Normal mediastinum and jamil. Normal visualized pulmonary arteries. Normal visualized aortic arch and descending thoracic aorta. Normal visualized thoracic spine. Normal visualized ribs, clavicles, and shoulders. There is no demonstrated abnormality of the visualized soft tissue structures of the upper abdomen. RAD/Chest 1 View (Portable) IMPRESSION: Normal x-ray examination of the chest. Electronically Signed: Damian Xavier MD at 15:40 EST ,
--- NOTE | 2022-09-11 15:21 | EDS_ITS ---
HPI History of Present Illness Chief Complaint: Palpitations Narrative Narrative: Patient presents not feeling well and feeling more tired for the past 2 to 3 days. No fevers or chills, she has been working quite a bit recently and has felt some palpitations over the past few days. She describes it as a fish bouncing in her chest. She has no actual shortness of breath. She has no pleuritic component. No back pain or tearing sensation. She does have a history of hypertension and takes antihypertensives. No headache. No recent weight loss. She denies any anxiety. [facility] Medical History Anxiety Asthma Back pain Contact with and (suspected) exposure to other viral communicable diseases Gastric reflux History of echocardiogram History of IBS Hypertension Injury of head and neck Non-smoker TIA (transient ischemic attack) URI (upper respiratory infection) Wears glasses Home Medications multivitamin,ge-kzgt-wwnegjvk 27 mg-0.4 mg tablet (Therems-M) 1 tab PO DAILY 04/07/15 [History Last Taken Unknown] lisinopril 20 mg tablet 30 mg PO QHS 04/12/16 [History Last Taken Unknown] Cholecalciferol (Vitamin D3) [Vitamin D3] 1 cap PO DAILY 11/03/20 [History Last Taken Unknown] hydrochlorothiazide 12.5 mg capsule 12.5 mg PO DAILY 11/03/20 [History Last Taken Unknown] sertraline 100 mg tablet 250 mg PO QHS 11/03/20 [History Last Taken Unknown] Lactobacillus acidophilus 10 billion cell capsule (Probiotic) 10,000 mmu cells PO DAILY 05/29/22 [History Last Taken Unknown] ascorbic acid (vitamin C) 500 mg tablet (Vitamin C) 500 mg PO DAILY 05/29/22 [History Last Taken Unknown] aspirin 325 mg tablet 325 mg PO QHS 05/29/22 [History Last Taken Unknown] buspirone 10 mg tablet 15 mg PO BID 05/29/22 [History Last Taken Unknown] fluticasone 250 mcg-salmeterol 50 mcg/dose blistr powdr for inhalation (Advair Diskus) 1 inh inhalation BID 05/29/22 [History Last Taken Unknown] pantoprazole 40 mg tablet,delayed release 40 mg PO BID 05/29/22 [History Last Taken Unknown] selenium 200 mcg tablet 200 mcg PO DAILY 05/29/22 [History Last Taken Unknown] zinc 50 mg tablet 50 mg PO DAILY 05/29/22 [History Last Taken Unknown] albuterol (refill) 90 mcg/actuation aerosol inhaler 90 mcg inhalation PRN PRN SOB 09/10/22 [History Last Taken Unknown] Allergy/AdvReac Type Severity Reaction Status Date / Time kiwi Allergy Rash Verified 09/11/22 15:02 Surgical History History of bilateral salpingectomy Hx of brain surgery Hx of section Hx of colonoscopy Social History Smoking Status: Never smoker ROS ROS ED ROS Narrative Past medical history: Reviewed, includes asthma, anxiety ovarian cyst Medications: Reviewed Social history: Noncontributory Review of systems: All systems negative except as indicated General: No fever Eyes: No visual changes ENT: No upper airway congestion, normal voice Neck: No neck pain Cardiovascular: No chest pain. Palpitations as in HPI Respiratory: No shortness of breath or cough Gastrointestinal: No abdominal pain, nausea vomiting or diarrhea Genitourinary: No dysuria Musculoskeletal: Denies myalgias no difficulty with ambulation Skin: No rash Neurological: No memory loss, confusion or any focal weakness Psych: No recent behavioral changes Hematologic: No easy bleeding or easy bruising EXAM Physical Exam Narrative Exam Narrative: Physical exam General: She appears relatively comfortable and in the bed. Well nourished, Well developed, No Acute Distress Head: Normocephalic, Atraumatic Eyes: Conjunctiva not pale ENT: Moist mucous membranes Neck: Supple, Nontender, No lymphadenopathy Cardiovascular: Regular rate, Regular rhythm. No murmur Respiratory: No distress, CTA bilaterally Abdomen: Soft, Nontender, Nondistended Back: Nontender, Normal Inspection. Negative for: CVA tenderness Extremities: Nontender, No edema Skin: Normal color, No rash Neurological: Alert, Normal Strength, Normal Sensation Psychological: Normal affect Const Vital Signs: 09/11/22 15:02 09/11/22 15:20 09/11/22 15:20 Temperature 97.8 F Temperature Source Temporal Pulse Rate 83 79 Respiratory Rate 18 16 Respiratory Effort Normal Non-Labored Blood Pressure 161/116 H 160/98 H Blood Pressure Mean 131 118 Pulse Ox 97 98 Oxygen Delivery Method Room Air Room Air 09/11/22 16:11 Temperature Temperature Source Pulse Rate 73 Respiratory Rate 18 Respiratory Effort Blood Pressure 146/98 H Blood Pressure Mean 114 Pulse Ox 97 Oxygen Delivery Method Room Air MDM MDM MDM Narrative Medical decision making narrative: Patient has a normal work-up she appears well. She was hydrated her blood pressure improved and she improved. I will discharge her in stable condition Lab Data Labs: Laboratory Results - last 24 hr 09/11/22 09/11/22 15:24 15:24 WBC 8.4 RBC 4.96 Hgb 14.0 Hct 42.4 MCV 85.5 MCH 28.2 MCHC 33.0 RDW Std Deviation 39.0 RDW Coeff of Barbara 12.7 Plt Count 299 MPV 9.7 Immature Gran % (Auto) 0.500 Neut % (Auto) 65.6 Lymph % (Auto) 25.0 [place] % (Auto) 7.2 Eos % (Auto) 1.2 Baso % (Auto) 0.5 Absolute Neuts (auto) 5.5 Absolute Lymphs (auto) 2.09 Nucleated RBC % 0 Sodium 138 Potassium 4.1 Chloride 106 Carbon Dioxide 26.0 Anion Gap 6 BUN 16 Creatinine 0.67 Estim Creat Clear Calc 113.72 Est GFR (MDRD) Af Amer 127 Est GFR (MDRD) Non-Af 105 BUN/Creatinine Ratio 24.0 H Glucose 115 H Calcium 9.3 Total Bilirubin 0.30 AST 17 ALT 31 Alkaline Phosphatase 57 Troponin I High Sens 7 Total Protein 7.8 Albumin 3.8 Globulin 4.0 Albumin/Globulin Ratio 1.0 TSH 2.08 Radiography Diagnostic Testing: Clinical Impression(s) from Imaging Studies Chest X-Ray 09/11/22 15:20 IMPRESSION: Normal x-ray examination of the chest. Electronically Signed: Damian Xavier MD at 15:40 EST , Discharge Plan Triage Chief Complaint: Palpitations ED Provider: Sampson Fernandes Dx/Rx/DC Orders Clinical Impression: Palpitation, Acute dehydration Instructions: Dehydration Prescriptions: No Action Therems-M 1 TABLET tablet 1 tab PO DAILY lisinopril 20 MG tablet 30 mg PO QHS sertraline 100 MG tablet 250 mg PO QHS hydrochlorothiazide 12.5 MG capsule 12.5 mg PO DAILY Cholecalciferol (Vitamin D3) [Vitamin D3] 5,000 UNIT capsule 1 cap PO DAILY fluticasone propion-salmeterol [Advair Diskus] 250-50 mcg/dose blister with device 1 inh INHALATION BID Label Comments: INHALE 1 PUFF DIRECTED TWICE DAILY aspirin 325 mg Tablet 325 mg PO QHS selenium 200 mcg Tablet 200 mcg PO DAILY ascorbic acid (vitamin C) [Vitamin C] 500 mg Tablet 500 mg PO DAILY pantoprazole 40 mg tablet,delayed release (DR/EC) 40 mg PO BID Label Comments: take 1 tablet by mouth twice a day BEFORE MEALS.TAKE ON AN EMPTY STOMACH, 30 MINUTES BEFORE A MEAL buspirone 10 mg tablet 15 mg PO BID Label Comments: take 1 tablet by mouth three times a day zinc 50 mg Tablet 50 mg PO DAILY Probiotic 10 billion cell Capsule 10,000 mmu cells PO DAILY albuterol (refill) 90 mcg/actuation Aerosol 90 mcg INHALATION PRN PRN (Reason: SOB) Primary Care Provider: Lamar Tam Referrals: Lamar Tam, PA [Primary Care Provider] - 3-5 Days Disposition Disposition: Home, Self Care
[2022-09-11] MEDS: 0.9% Normal Saline 1,000 ML 1000 ML IV (15:30)
[2022-09-11 15:34] LABS: Absolute Lymphocyte Count 2.09 X10^3/uL (0.83-4.51); Absolute Neutrophil Count 5.5 X10^3/uL (2.0-7.7); Basophil# 0.04 X10^3/uL; Basophil% 0.5 % (0-1); Eosinophils% 1.2 % (0-5); Hematocrit 42.4 % (37-47); Lymphocyte # 2.09 X10^3/ul (0.83-4.51); Mean Corpuscular Hgb 28.2 pg (27.0-32.0); Mean Corpuscular Volume 85.5 fL (81-99); Mean Platelet Vol. 9.7 fl (6.2-12.0); Monocyte% 7.2 % (0-10); NRBC Flagged by Analyzer 0 % (0-5); Neutrophil % 65.6 % (47-70); Platelet Count 299 K/mm3 (150-450); RBC Distribution Width CV 12.7 % (11.6-14.6); Red Blood Count 4.96 M/mm3 (4.2-5.4); White Blood Count 8.4 K/mm3 (4.4-11.0)
[2022-09-11 15:56] LABS: AST(SGOT) 17 U/L (15-37); Alanine Aminotransfer ALT/SGPT 31 U/L (13-56); Albumin, Serum 3.8 g/dL (3.2-5.0); Alkaline Phosphatase 57 U/L (45-117); Anion Gap 6 (5-15); BUN 16 mg/dL (7-18); Calcium,Total 9.3 mg/dL (8.5-10.1); Chloride 106 mmol/L (98-107); Creatinine, Serum 0.67 mg/dL (0.55-1.02); EST Glomerular Filtration Rate 105 mL/min (>60); Est Glom Filt Rate - Afr Amer 127 mL/min (>60); Estimated Creatinine Clearance 113.72 ml/min; Glucose 115 mg/dL (74-106); Potassium 4.1 mmol/L (3.5-5.1); Protein, Total 7.8 g/dL (6.4-8.2); Sodium Level 138 mmol/L (136-145); Thyroid Stim Hormone (TSH) 2.08 uIU/mL (0.358-3.74); Troponin-I HS 7 pg/mL (3.0-54.0)
[2022-09-11 16:11] VITALS: BP 146/98; PULSE 73; RESP 18; O2SAT 97
[2022-09-11 17:16] VITALS: PULSE 80; RESP 15; O2SAT 97
== END 2022-09-11 17:17 | disposition home or self-care (01) ==
PROVIDERS: Emergency Provider Emergency Medicine; PCP Physician Assistant; Visit Provider Emergency Medicine
DX: R00.2 Palpitations (principal); E86.0 Dehydration; Z86.73 Personal history of transient ischemic attack (TIA), and cerebral infarction without residual deficits
CPT/HCPCS: 71045; 80053; 84443; 84484; 85025; 87811; 93005; 96360; 99283; J7030; A4216

== ENCOUNTER 2022-09-19 09:46 | Day surgery (SDC) | payer MEDICAID, SELFPAY ==
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
--- NOTE | 2022-09-19 | OV_PTH ---
PATIENT: NAM ALEJANDRO LOC: [facility] – [place] U#:[id number] AGE/SX: 37/F ROOM: RE09/19/[address]: Dr. Suni Kaba, MDDOB: 1985 BED: DIS: 09/19/2022 SPEC #: [id number] RECD: 09/19/22 13:14 STATUS: DHARA CHIDI #: [id number] ARUNA: 09/19/22 00:[address]: Suni Kaba DEPT: SURGICAL PATHOLOGY RECD BY: Ousmane Norman ENTERED: 09/19/22 13:15 SP TYPE: OVARY OTHR DR: MARIFER Corrales Tissues: Left ovary Procedures: Surgery Specimen Level IV HEADER OPERATION: Laparoscopic left oophorectomy PRE-OP DIAGNOSIS: Left ovarian cyst, pelvic pain TISSUE SUBMITTED: Left ovary and cyst MICROSCOPIC DIAGNOSIS Left ovary with cyst, oophorectomy: Endometrioma. AM:jose 09/20/2022 COMMENT Case has been reviewed in consultation with Dr. Myrick who concurs with the above diagnosis. IDC:GRIFFIN MICROSCOPIC DESCRIPTION Slides are reviewed. GROSS DESCRIPTION Received in fixative is one container labeled with the patient's name and designated left ovary and cyst. The specimen consists of a previously partially opened cystic ovary weighing 26.7 gm and measuring 6 x 6 x 2 cm. A few blood clots are also noted in the container. The outer surface of the ovary is smooth without any papillation. It is inked black. The entire ovary is replaced by unilocular cyst. The cyst ivory are ragged and measures 0.1 to 0.2 cm in thickness. No papillations are identified. The cyst contains hemorrhagic fluid. Drain Cleaner sections are submitted in four cassettes. / GRIFFIN:jose 09/19/2022 TC:5 CPT: 28751
[2022-09-19 10:23] LABS: Internal QC Validated? YES +Cl - CLEAR BKGD
[2022-09-19 10:27] LABS: Pregnancy, Urine Negative Negative
[2022-09-19] MEDS: Lactated Ringers 1,000 ML 15 ML IV (10:37)
[2022-09-19 10:38] VITALS: BP 151/89; PULSE 66; RESP 18; TEMP 36.3; O2SAT 95; BMI 46.8
--- NOTE | 2022-09-19 11:13 | DCINST_ITS ---
Discharge Instructions Procedure Other Diet Discharge Diet: No restrictions Activity May resume sexual activity in: 2 weeks Lifting Restrictions: 20-25 lbs Dressing / Incision Call your doctor if your incision/area has: Continuous Slow Oozing, Sudden Increased Bleeding, Increased Pain/ Swelling, Increased Redness, Foul Smelling Discharge and Swelling at the incision site Call your doctor if you observe: Fever of 101 or Higher, Inability to urinate, Inability to have a bowel movement, Using more than 1 pad per hour and Uncontrolled pain Additional Dressing/Incision Instructions:: You have skin glue over your incision sites, do not pick off. You may shower and let the soap and water run over the incision sites and dab dry. Follow Up Care Please Follow Up With: Suni Kaba MD When: 1-2 weeks post OP if you need an appointment please call [phone] Test Results: Test results from this visit will be discussed in further detail at your follow- up appointment, if applicable. Discharge Plan Admission Attending Provider: Suni Kaba Primary Care Provider: Lamar Tam Discharge Orders/Prescriptions Prescriptions: No Action Therems-M 1 TABLET tablet 1 tab PO DAILY lisinopril 20 MG tablet 30 mg PO QHS sertraline 100 MG tablet 250 mg PO QHS hydrochlorothiazide 12.5 MG capsule 12.5 mg PO DAILY Cholecalciferol (Vitamin D3) [Vitamin D3] 5,000 UNIT capsule 1 cap PO DAILY fluticasone propion-salmeterol [Advair Diskus] 250-50 mcg/dose blister with d evice 1 inh INHALATION BID Label Comments: INHALE 1 PUFF DIRECTED TWICE DAILY aspirin 325 mg Tablet 325 mg PO QHS selenium 200 mcg Tablet 200 mcg PO DAILY ascorbic acid (vitamin C) [Vitamin C] 500 mg Tablet 500 mg PO DAILY pantoprazole 40 mg tablet,delayed release (DR/EC) 40 mg PO BID Label Comments: take 1 tablet by mouth twice a day BEFORE MEALS.TAKE ON AN EMPTY STOMACH, 30 MINUTES BEFORE A MEAL buspirone 10 mg tablet 15 mg PO BID Label Comments: take 1 tablet by mouth three times a day zinc 50 mg Tablet 50 mg PO DAILY Probiotic 10 billion cell Capsule 10,000 mmu cells PO DAILY albuterol (refill) 90 mcg/actuation Aerosol 90 mcg INHALATION PRN PRN (Reason: SOB) Other Ambulatory Orders: Basic Metabolic Profile (BMP) (Routine) Timeframe: 20220910 Facility: [facility] - Location: Laboratory Ordered By: Dr. Jeremiah Sunshine CBC-Complete Blood Cnt No Diff (Routine) Timeframe: [id number] Facility: [facility] - Location: Laboratory Ordered By: Dr. Suni Kaba Referrals / Follow Up: Lamar Tam, PA [Primary Care Provider] - Disposition Disposition (needs filled in before D/C Order can be placed): Home, Self Care
--- NOTE | 2022-09-19 12:16 | PCM.OPRPT ---
Report of Operation Date of Procedure: 09/19/22 Pre-Operative Diagnosis: Left ovarian cyst, pelvic pain Post-Operative Diagnosis: same, endometriosis Surgery/Procedure Performed:: Left oophorectomy Description of Surgical Findings:: brown endometriotic implants noted, chocolate cyst appreciated Left ovary, minimal adhesions left ovary to bowel. Surgeon: Suni Kaba switchboard operator receptionist: Natalie Alvarado Type of Anesthesia: General and Local Special Medications: 0.25% marcaine Specimen's removed: left ovary and cyst Drains: none Estimated Blood Loss (mL): 5 Fluids Replaced: 1400 Description of Procedure: After informed consent was obtained patient was taken to the operating room she was placed in supine position she was given anesthesia. She was then placed in the [facility] stirrups and she was prepped and draped in normal sterile fashion. Bladder was drained prior to the start of procedure. At this time attention was turned to the vaginal portion where weighted speculum placed at posterior fornix vagina single-tooth tenaculum was used to gently grasp the internal the cervix. uterus was gently sounded to approximately 8cm. Uterine manipulator was placed without difficulty. Legs then placed in parallel with the abdomen the tenaculum and the weighted speculum were removed. 2 towel clamps were placed at umbilicus. After Marcaine was injected inferiour to umbilicus a small incision was made and a 5 mm trocar was placed under direct visualization. CO2 gas was used to insufflate the intra-abdominal cavity. Upon inspection brown endometriotic implants noted on anterior abdominal wall peritoneium, right Broad ligament, Large left endometrioma. At this time then the LLQ port was placed again Marcaine was injected small incision was made a knife and the 5 mm trocar was placed. this was repeated on right side. at this time the left ovary was manipulated and small adhesions to bowel noted- easily taken down- the cyst even with minimal manipulation ruptured and classic chocolate cyst fluid was explled the remained was suctioned out of the cyst. . Ligasure was used to coagulate and ligate along IP ligament, uterovarian and the mesosalpynx until ovary was removed with cyst completely. Good hemostasis was appreciated. The umbilical incision was extended to 10mm port and endocatch bag placed- specimen collected and removed. The any thurston was then used to closed fascia of umbilical incision using 0-vicryl sutre. At this time procedure was deemed complete successful. The Pelvis and abdomen were irrigated and suctioned. The gas was desufflated on from the intra-abdominal cavity. The trochars were removed. Skin was closed using 4-0 Monocryl in a subcutaneous fashion. Dermabond glue was placed. Instrument lap and needle counts were correct ?2. The uterine manipulator was removed. Vaginal sweep was performed it was negative. There were no complications anticipated normal postoperative course for this patient. Grafts/Implants Used: none Procedure Start Time: 11:38 Procedure Stop Time: 12:16 Complications none Admit VTE Documentation VTE Present on Admission: Yes VTE Mechan Device Prophylaxis: SCD's VTE Pharm Prophylaxis ordered?: No Reason prophylaxis not ordered:: Procedure Not Indicated
[2022-09-19 12:32] VITALS: BP 149/84; BP 151/89; PULSE 67; RESP 16; TEMP 37.6; O2SAT 84
[2022-09-19 12:45] VITALS: BP 149/92; BP 151/89; PULSE 60; RESP 16; O2SAT 99
[2022-09-19 13:00] VITALS: BP 142/85; BP 151/89; PULSE 81; RESP 16; O2SAT 94
[2022-09-19 13:20] VITALS: BP 139/86; BP 151/89; PULSE 79; RESP 16; TEMP 36.7; O2SAT 95
[2022-09-19 13:33] VITALS: BP 151/89
== END 2022-09-19 13:54 | disposition home or self-care (01) ==
LOC: SDC 09:46 → AC 09:48
PROVIDERS: PCP Physician Assistant; Referring Provider Obstetrics & Gynecology; Visit Provider Obstetrics & Gynecology
PROC: (CPT 58661; principal; 2022-09-19 11:05)
DX: N80.102 Endometriosis of left ovary, unspecified depth (principal); E66.01 Morbid (severe) obesity due to excess calories; Z68.42 Body mass index [BMI] 45.0-49.9, adult; I10 Essential (primary) hypertension; J45.909 Unspecified asthma, uncomplicated; F41.9 Anxiety disorder, unspecified; Z79.82 Long term (current) use of aspirin; Z79.899 Other long term (current) drug therapy; Z86.73 Personal history of transient ischemic attack (TIA), and cerebral infarction without residual deficits
CPT/HCPCS: 58661; 00840; 81025; 88305; J7120; J2405

== ENCOUNTER 2023-03-10 18:07 | Emergency (ER) | payer MEDICAID, SELFPAY ==
[2023-03-10 18:08] VITALS: BP 190/109; PULSE 84; RESP 18; TEMP 36.6; O2SAT 98; BMI 44.2
--- NOTE | 2023-03-10 19:24 | ED.VIS.DYS ---
HPI History of Present Illness Chief Complaint: Cough Narrative Narrative: Female presenting with cough, shortness of breath. This started when she was on a recent trip to [place]. She never had fevers or chills. She was able to climb up mountains and go on hikes without any difficulty. She does report cough and congestion throughout this timeframe. She states she was taking some medicine for this and actually cleared up when she came home and she was better for a couple of days and now she notes that she is coughing and congested again. She states she has asthma and feels as if she is wheezing. She denies fever, chills. She does not have any chest pain. No history of DVT/PE. [facility] Medical History Anxiety Asthma Back pain Contact with and (suspected) exposure to other viral communicable diseases Gastric reflux History of echocardiogram History of IBS Hypertension Injury of head and neck Non-smoker TIA (transient ischemic attack) URI (upper respiratory infection) Wears glasses Home Medications multivitamin,gk-vclb-yegdskum 27 mg-0.4 mg tablet (Therems-M) 1 tab PO DAILY 04/07/15 [History Last Taken 09/18/22] lisinopril 20 mg tablet 30 mg PO QHS 04/12/16 [History Last Taken 09/18/22] Cholecalciferol (Vitamin D3) [Vitamin D3] 1 cap PO DAILY 11/03/20 [History Last Taken 09/18/22] hydrochlorothiazide 12.5 mg capsule 12.5 mg PO DAILY 11/03/20 [History Last Taken 09/18/22] sertraline 100 mg tablet 250 mg PO QHS 11/03/20 [History Last Taken 09/18/22] Lactobacillus acidophilus 10 billion cell capsule (Probiotic) 10,000 mmu cells PO DAILY 05/29/22 [History Last Taken 09/18/22] ascorbic acid (vitamin C) 500 mg tablet (Vitamin C) 500 mg PO DAILY 05/29/22 [History Last Taken 09/18/22] aspirin 325 mg tablet 325 mg PO QHS 05/29/22 [History Last Taken 09/18/22] buspirone 10 mg tablet 15 mg PO BID 05/29/22 [History Last Taken 09/18/22] fluticasone 250 mcg-salmeterol 50 mcg/dose blistr powdr for inhalation (Advair Diskus) 1 inh inhalation BID 05/29/22 [History Last Taken 09/18/22] pantoprazole 40 mg tablet,delayed release 40 mg PO BID 05/29/22 [History Last Taken 09/19/22] selenium 200 mcg tablet 200 mcg PO DAILY 05/29/22 [History Last Taken 09/18/22] zinc 50 mg tablet 50 mg PO DAILY 05/29/22 [History Last Taken 09/18/22] albuterol (refill) 90 mcg/actuation aerosol inhaler 90 mcg inhalation PRN PRN SOB 09/10/22 [History Last Taken 09/18/22] loratadine 10 mg disintegrating tablet (Claritin RediTabs) 10 mg PO DAILY #30 tabs 03/10/23 [Rx Last Taken Unknown] prednisone 50 mg tablet 50 mg PO DAILY #5 tabs 03/10/23 [Rx Last Taken Unknown] Allergy/AdvReac Type Severity Reaction Status Date / Time kiwi Allergy Rash Verified 03/10/23 18:08 Surgical History History of bilateral salpingectomy Hx of brain surgery Hx of section Hx of colonoscopy Social History Smoking Status: Never smoker ROS ROS ED Constitutional Constitutional ED: Denies chills, fever(s) or sweats Eyes Eyes: Denies blurry vision or change in vision ENT ENT ED: Reports rhinorrhea and sore throat; Denies ear pain Cardiovascular Cardiovascular: Denies chest pain, palpitations or racing heartbeat Respiratory/Chest Respiratory/Chest: Reports cough and dyspnea; Denies sputum Gastrointestinal Gastrointestinal: Reports nausea; Denies abdominal pain, constipation, diarrhea or vomiting Genitourinary Genitourinary ED: Denies dysuria, hematuria or urinary frequency Musculoskeletal Musculoskeletal: Denies arthralgias, myalgias or neck pain Integumentary Denies abscess, Abrasions or rash Neurologic Neurologic: Denies headache(s), paresthesias or weakness Psychiatric Psychiatric: Denies anxiety, depression, suicidal ideation or suicidal thoughts Endocrine Endocrinology: Denies polydipsia or polyuria EXAM Physical Exam Const Vital Signs: 03/10/23 18:08 03/10/23 19:38 03/10/23 22:15 Temperature 97.8 F Temperature Source Temporal Pulse Rate 84 88 Respiratory Rate 18 18 18 Blood Pressure 190/109 H Blood Pressure Mean 136 Pulse Ox 98 Oxygen Delivery Method Room Air Room Air Positive well nourished General Appearance ED: NAD; Negative for pallor HEENT Reports moist mucous membranes atraumatic Eyes PERRL and EOMs intact bilaterally Resp normal respiratory effort Auscultation: wheezes expiratory wheezes Cardio regular rate and regular rhythm Extremity normal to inspection Neuro oriented x3 and CN's II-XII intact bilaterally Sensorium / Orientation: alert Motor Exam: strength 5/5 throughout Psych mental status grossly normal Skin no wounds and skin turgor normal General Skin Exam: Negative for jaundice or pallor MDM MDM MDM Narrative Medical decision making narrative: Patient presenting with wheezing and allergy symptoms. She does have history of asthma. She is given prednisone and breathing treatments and she does feel much better on reevaluation. I do not believe she has a chest x-ray or lab work. She be treated with a burst of prednisone. I did start her on Claritin as well. She has albuterol inhaler at home. Return precautions were discussed. Impression: 1. Seasonal allergies 2. Asthma Discharge Plan Triage Chief Complaint: Cough Other Complaint: Chest Other Cold Sx Dizziness ED Provider: Junaid Manzanares Dx/Rx/DC Orders Instructions: ED Asthma, Acute (Adult), ED Allergic Rhinitis Prescriptions: New prednisone 50 mg tablet 50 mg PO DAILY Qty: 5 0RF loratadine [Claritin RediTabs] 10 mg tablet,disintegrating 10 mg PO DAILY Qty: 30 0RF No Action Therems-M 1 TABLET tablet 1 tab PO DAILY lisinopril 20 MG tablet 30 mg PO QHS sertraline 100 MG tablet 250 mg PO QHS hydrochlorothiazide 12.5 MG capsule 12.5 mg PO DAILY Cholecalciferol (Vitamin D3) [Vitamin D3] 5,000 UNIT capsule 1 cap PO DAILY fluticasone propion-salmeterol [Advair Diskus] 250-50 mcg/dose blister with device 1 inh INHALATION BID Label Comments: INHALE 1 PUFF DIRECTED TWICE DAILY aspirin 325 mg Tablet 325 mg PO QHS selenium 200 mcg Tablet 200 mcg PO DAILY ascorbic acid (vitamin C) [Vitamin C] 500 mg Tablet 500 mg PO DAILY pantoprazole 40 mg tablet,delayed release (DR/EC) 40 mg PO BID Label Comments: take 1 tablet by mouth twice a day BEFORE MEALS.TAKE ON AN EMPTY STOMACH, 30 MINUTES BEFORE A MEAL buspirone 10 mg tablet 15 mg PO BID Label Comments: take 1 tablet by mouth three times a day zinc 50 mg Tablet 50 mg PO DAILY Probiotic 10 billion cell Capsule 10,000 mmu cells PO DAILY albuterol (refill) 90 mcg/actuation Aerosol 90 mcg INHALATION PRN PRN (Reason: SOB) Primary Care Provider: Lamar Tam Referrals: Lamar Tam PA [Primary Care Provider] - Disposition Disposition: Home, Self Care Discharge Date/Time: 03/10/23 22:16
[2023-03-10] MEDS: predniSONE 20 MG Tablet 60 MG PO (19:33)
[2023-03-10] MEDS: Albuterol 2.5 MG/3 ML VIAL.NEB. INHALATION (19:34)
[2023-03-10] MEDS: Ipratropium/Albuterol Sulfate 3 ML AMPUL.NEB INHALATION (19:34)
[2023-03-10 19:38] VITALS: PULSE 88; RESP 18
[2023-03-10 22:15] VITALS: RESP 18
== END 2023-03-10 22:16 | disposition home or self-care (01) ==
PROVIDERS: Emergency Provider Student in an Organized Health Care Education/Training Program; PCP Physician Assistant; Referring Provider Student in an Organized Health Care Education/Training Program; Visit Provider Student in an Organized Health Care Education/Training Program
DX: J45.909 Unspecified asthma, uncomplicated (principal); I10 Essential (primary) hypertension; Z79.899 Other long term (current) drug therapy; F41.9 Anxiety disorder, unspecified; Z79.82 Long term (current) use of aspirin; Z79.51 Long term (current) use of inhaled steroids; K21.9 Gastro-esophageal reflux disease without esophagitis
CPT/HCPCS: 94640; 99282

== ENCOUNTER 2023-09-28 15:51 | Emergency (ER) | payer MEDICAID, SELFPAY ==
[2023-09-28 15:52] VITALS: BP 149/88; PULSE 78; RESP 17; TEMP 36.4; O2SAT 98; BMI 40.9
[2023-09-28 17:18] VITALS: BP 148/88; PULSE 78; RESP 17; TEMP 36.4; O2SAT 98
--- NOTE | 2023-09-28 17:52 | EX.ED.DYSGE1 ---
HPI <MARIFER Salcido - Last Filed: 09/28/23 20:18> History of Present Illness Chief Complaint: General Illness Narrative Narrative: Patient presenting with cold-like symptoms that she has had over the past 2 days. She is being seen with her son who is sick with similar symptoms. She reports that she has had a scratchy throat, nonproductive cough, increased wheezing, and chest heaviness. She reports a history of asthma. She reports every time she is sick she requires steroids. She denies any fever, chills, shortness of breath, and chest pain. PFSH <MARIFER Salcido - Last Filed: 09/28/23 20:18> [facility] Medical History Anxiety Asthma Back pain Contact with and (suspected) exposure to other viral communicable diseases Gastric reflux History of echocardiogram History of IBS Hypertension Injury of head and neck Non-smoker TIA (transient ischemic attack) URI (upper respiratory infection) Wears glasses Home Medications multivitamin,dy-psyw-uaofmizx 27 mg-0.4 mg tablet (Therems-M) 1 tab PO DAILY 04/07/15 [History Last Taken 09/18/22] lisinopril 20 mg tablet 30 mg PO QHS 04/12/16 [History Last Taken 09/18/22] Cholecalciferol (Vitamin D3) [Vitamin D3] 1 cap PO DAILY 11/03/20 [History Last Taken 09/18/22] hydrochlorothiazide 12.5 mg capsule 12.5 mg PO DAILY 11/03/20 [History Last Taken 09/18/22] sertraline 100 mg tablet 250 mg PO QHS 11/03/20 [History Last Taken 09/18/22] Lactobacillus acidophilus 10 billion cell capsule (Probiotic) 10,000 mmu cells PO DAILY 05/29/22 [History Last Taken 09/18/22] ascorbic acid (vitamin C) 500 mg tablet (Vitamin C) 500 mg PO DAILY 05/29/22 [History Last Taken 09/18/22] aspirin 325 mg tablet 325 mg PO QHS 05/29/22 [History Last Taken 09/18/22] buspirone 10 mg tablet 15 mg PO BID 05/29/22 [History Last Taken 09/18/22] fluticasone 250 mcg-salmeterol 50 mcg/dose blistr powdr for inhalation (Advair Diskus) 1 inh inhalation BID 05/29/22 [History Last Taken 09/18/22] pantoprazole 40 mg tablet,delayed release 40 mg PO BID 05/29/22 [History Last Taken 09/19/22] selenium 200 mcg tablet 200 mcg PO DAILY 05/29/22 [History Last Taken 09/18/22] zinc 50 mg tablet 50 mg PO DAILY 05/29/22 [History Last Taken 09/18/22] albuterol (refill) 90 mcg/actuation aerosol inhaler 90 mcg inhalation PRN PRN SOB 09/10/22 [History Last Taken 09/18/22] loratadine 10 mg disintegrating tablet (Claritin HeroiTamy) 10 mg PO DAILY #30 tabs 03/10/23 [Rx Last Taken Unknown] prednisone 50 mg tablet 50 mg PO DAILY #5 tabs 03/10/23 [Rx Last Taken Unknown] prednisone 20 mg tablet 40 mg (2 x 20 mg) PO DAILY 4 days #8 tabs 09/28/23 [Rx Last Taken Unknown] Allergy/AdvReac Type Severity Reaction Status Date / Time kiwi Allergy Rash Verified 09/28/23 15:51 Surgical History History of bilateral salpingectomy Hx of brain surgery Hx of section Hx of colonoscopy Social History Smoking Status: Never smoker ROS <MARIFER Salcido - Last Filed: 09/28/23 20:18> ROS ED Constitutional Constitutional ED: Denies chills or fever(s) Cardiovascular Cardiovascular: Denies chest pain or palpitations Respiratory/Chest Respiratory/Chest: Reports cough and wheezing; Denies dyspnea or tachypnea Gastrointestinal Gastrointestinal: Denies abdominal pain, nausea or vomiting Musculoskeletal Musculoskeletal: Denies arthralgias or myalgias Integumentary Denies rash Neurologic Neurologic: Denies weakness EXAM <MARIFER Salcido - Last Filed: 09/28/23 20:18> Physical Exam Const Vital Signs: 09/28/23 15:52 09/28/23 17:15 09/28/23 17:18 Temperature 97.6 F L 97.6 F L Temperature Source Temporal Temporal Pulse Rate 78 78 Respiratory Rate 17 17 Respiratory Effort Normal Respiratory Pattern Normal Blood Pressure 149/88 H 148/88 H Blood Pressure Mean 108 108 Pulse Ox 98 98 Oxygen Delivery Method Room Air Room Air Positive well nourished, well developed and no apparent distress General Appearance ED: well developed HEENT Reports normocephalic and head/scalp atraumatic HEENT Narrative: Posterior pharynx clear, no tonsillar exudate, uvula midline, no trismus, no drooling Mouth ED: Yes moist mucous membranes normal Eyes PERRL and EOMs intact bilaterally Neck full ROM and supple Chest Wall inspection of chest normal Resp normal respiratory effort and clear to auscultation bilaterally Cardio regular rate and regular rhythm GI soft to palpation, non-tender, non-distended and no masses Back/Spine normal ROM and normal to inspection Extremity normal to inspection and full ROM Neuro oriented x3, CN's II-XII intact bilaterally, moves all extremities, no focal motor deficits and no sensory deficits noted Sensorium / Orientation: awake and alert Psych mental status grossly normal and thought process normal Skin no rashes or lesions noted and no wounds <Dr. Junaid Manzanares, - Last Filed: 09/29/23 00:10> Physical Exam Const Vital Signs: 09/28/23 15:52 09/28/23 17:15 09/28/23 17:18 Temperature 97.6 F L 97.6 F L Temperature Source Temporal Temporal Pulse Rate 78 78 Respiratory Rate 17 17 Respiratory Effort Normal Respiratory Pattern Normal Blood Pressure 149/88 H 148/88 H Blood Pressure Mean 108 108 Pulse Ox 98 98 Oxygen Delivery Method Room Air Room Air [facility] <MARIFER Salcido - Last Filed: 09/28/23 20:18> [facility] Narrative Medical decision making narrative: Patient presenting with cold-like symptoms she has had for the past 2 days. She is requesting a prescription for prednisone given her increased wheezing and history of asthma. I think that this is reasonable. Her lungs sound clear here on examination. I do not feel that a chest x-ray is indicated at this time. Examination is consistent with viral illness. Her son is being seen for similar symptoms. I have encouraged supportive care measures. COVID and flu swabs will be obtained and are negative. She will be given a prescription for prednisone will be discharged home in stable condition. She is comfortable with plan. <DO Wendie Coelho Last Filed: 09/29/23 00:10> [facility] Narrative Medical decision making narrative: Patient presenting with cold-like symptoms she has had for the past 2 days. She is requesting a prescription for prednisone given her increased wheezing and history of asthma. I think that this is reasonable. Her lungs sound clear here on examination. I do not feel that a chest x-ray is indicated at this time. Examination is consistent with viral illness. Her son is being seen for similar symptoms. I have encouraged supportive care measures. COVID and flu swabs will be obtained and are negative. She will be given a prescription for prednisone will be discharged home in stable condition. She is comfortable with plan. This patient was seen with a PA/FOUNDATION RELATIONS DIRECTOR Individually assessed they patient including history and physical. I have reviewed everything on the chart that is available and agree with the documentation provided by the PA/FOUNDATION RELATIONS DIRECTOR including discussion about the assessment, treatment plan, discussion, and return precautions. Patient presenting with viral syndrome. She has had this for a few days. Similar symptoms. She has a history of asthma and she was try to go to urgent care to get prednisone however she tells me that they turned her away at the door and would not see her today. Lungs clear to auscultation bilaterally. Heart regular rate and rhythm without murmur. Otherwise physical exam unremarkable. Vital signs stable she is afebrile. COVID and influenza swabs are negative today. Patient given a prescription for prednisone as needed. She has albuterol inhaler as well for home as well. Return precautions discussed. Discharge Plan Triage Chief Complaint: General Illness ED Midlevel Provider: Evi Griffith ED Provider: Junaid Manzanares Dx/Rx/DC Orders Clinical Impression: Viral URI with cough, Asthma Instructions: ED URI, Viral W/ Wheezing (Adult) Prescriptions: New prednisone 20 mg tablet 40 mg PO DAILY 4 Days Qty: 8 0RF No Action Therems-M 1 TABLET tablet 1 tab PO DAILY lisinopril 20 MG tablet 30 mg PO QHS sertraline 100 MG tablet 250 mg PO QHS hydrochlorothiazide 12.5 MG capsule 12.5 mg PO DAILY Cholecalciferol (Vitamin D3) [Vitamin D3] 5,000 UNIT capsule 1 cap PO DAILY fluticasone propion-salmeterol [Advair Diskus] 250-50 mcg/dose blister with device 1 inh INHALATION BID Patient Comments: INHALE 1 PUFF DIRECTED TWICE DAILY aspirin 325 mg Tablet 325 mg PO QHS selenium 200 mcg Tablet 200 mcg PO DAILY ascorbic acid (vitamin C) [Vitamin C] 500 mg Tablet 500 mg PO DAILY pantoprazole 40 mg tablet,delayed release (DR/EC) 40 mg PO BID Patient Comments: take 1 tablet by mouth twice a day BEFORE MEALS.TAKE ON AN EMPTY STOMACH, 30 MINUTES BEFORE A MEAL buspirone 10 mg tablet 15 mg PO BID Patient Comments: take 1 tablet by mouth three times a day zinc 50 mg Tablet 50 mg PO DAILY Probiotic 10 billion cell Capsule 10,000 mmu cells PO DAILY albuterol (refill) 90 mcg/actuation Aerosol 90 mcg INHALATION PRN PRN (Reason: SOB) prednisone 50 mg tablet 50 mg PO DAILY Qty: 5 0RF loratadine [Claritin RediTabs] 10 mg tablet,disintegrating 10 mg PO DAILY Qty: 30 0RF Primary Care Provider: Lamar Tam Referrals: Lamar Tam, PA [Primary Care Provider] - Activity Restrictions/Additional Instructions: Follow-up with your PCP, return for any worsening of your symptoms. Disposition Disposition: Home, Self Care Discharge Date/Time: 09/28/23 18:43
[2023-09-28] MEDS: predniSONE 20 MG Tablet 40 MG PO (18:10)
== END 2023-09-28 18:43 | disposition home or self-care (01) ==
PROVIDERS: Emergency Provider Student in an Organized Health Care Education/Training Program; PCP Physician Assistant; Visit Provider Student in an Organized Health Care Education/Training Program
DX: J06.9 Acute upper respiratory infection, unspecified (principal); I10 Essential (primary) hypertension; J45.909 Unspecified asthma, uncomplicated; R05.9 Cough, unspecified; Z86.73 Personal history of transient ischemic attack (TIA), and cerebral infarction without residual deficits; Z79.899 Other long term (current) drug therapy; F41.9 Anxiety disorder, unspecified; Z79.82 Long term (current) use of aspirin; K21.9 Gastro-esophageal reflux disease without esophagitis
CPT/HCPCS: 87428; 99283

== ENCOUNTER 2024-04-17 00:13 | Emergency (ER) | payer MEDICAID, SELFPAY ==
[2024-04-17 00:14] VITALS: BP 162/93; PULSE 74; RESP 18; TEMP 36.6; O2SAT 98; BMI 40.6
--- NOTE | 2024-04-17 00:30 | RAD_ITS ---
INDICATION: injury EXAMINATION/TECHNIQUE: X-RAY - LEFT XR Foot Min 3 Views COMPARISON: None. FINDINGS: 3 views of the left foot. BONES: Normal anatomic alignment without evidence of fracture or subluxation. No concerning bony lesion or abnormal sclerosis to suggest lesion. JOINTS: No significant degenerative change. SOFT TISSUES: Inferior calcaneal enthesophyte. Focal soft tissue swelling of the mid foot dorsum. RAD/Foot min 3 Views IMPRESSION: No acute osseous abnormality of the left foot. Electronically Signed: Roque Pastor MD at 2:03 EDT ,
--- NOTE | 2024-04-17 00:57 | EX.ED.DYSGE1 ---
HPI History of Present Illness Chief Complaint: Lower Extremity Injury Informant: patient Narrative Narrative: Patient is a 38-year-old female with past medical history of hypertension. She states around 8 PM this evening she dropped a 2 x 4 on her left foot that she was repurposing out in the garage. She states she had pain after the initial injury but that this seemed to improve as time passed but then she noticed increased swelling and bruising and with concern for potential fracture secondary to this she comes in for evaluation [facility] Medical History Contact with and (suspected) exposure to other viral communicable diseases URI (upper respiratory infection) Wears glasses Anxiety Back pain Injury of head and neck TIA (transient ischemic attack) History of IBS Gastric reflux Non-smoker Asthma History of echocardiogram Hypertension Home Medications ?Medication ?Instructions ?Recorded ?Last Taken ?Type multivitamin,nu-oers-gfkuwted 27 1 tab PO DAILY 04/07/15 09/18/22 History mg-0.4 mg tablet (Therems-M) lisinopril 20 mg tablet 30 mg PO QHS 04/12/16 09/18/22 History Cholecalciferol (Vitamin D3) 1 cap PO DAILY 11/03/20 09/18/22 History [Vitamin D3] hydrochlorothiazide 12.5 mg capsule 12.5 mg PO DAILY 11/03/20 09/18/22 History sertraline 100 mg tablet 250 mg PO QHS 11/03/20 09/18/22 History Lactobacillus acidophilus 10 10,000 mmu cells PO DAILY 05/29/22 09/18/22 History billion cell capsule (Probiotic) ascorbic acid (vitamin C) 500 mg 500 mg PO DAILY 05/29/22 09/18/22 History tablet (Vitamin C) aspirin 325 mg tablet 325 mg PO QHS 05/29/22 09/18/22 History buspirone 10 mg tablet 15 mg PO BID 05/29/22 09/18/22 History fluticasone 250 mcg-salmeterol 50 1 inh inhalation BID 05/29/22 09/18/22 History mcg/dose blistr powdr for inhalation (Advair Diskus) pantoprazole 40 mg tablet,delayed 40 mg PO BID 05/29/22 09/19/22 History release selenium 200 mcg tablet 200 mcg PO DAILY 05/29/22 09/18/22 History zinc 50 mg tablet 50 mg PO DAILY 05/29/22 09/18/22 History albuterol (refill) 90 90 mcg inhalation PRN PRN SOB 09/10/22 09/18/22 History mcg/actuation aerosol inhaler loratadine 10 mg disintegrating 10 mg PO DAILY #30 tabs 03/10/23 Unknown Rx tablet (Claritin RediTabs) prednisone 50 mg tablet 50 mg PO DAILY #5 tabs 03/10/23 Unknown Rx prednisone 20 mg tablet 40 mg (2 x 20 mg) PO DAILY 4 days 09/28/23 Unknown Rx #8 tabs Allergy/AdvReac Type Severity Reaction Status Date / Time kiwi Allergy Rash Verified 04/17/24 00:14 Surgical History History of bilateral salpingectomy Hx of brain surgery Hx of section Hx of colonoscopy Social History Smoking Status: Never smoker ROS ROS ED Constitutional Constitutional ED: Denies chills or fever(s) ENT ENT ED: Denies sore throat Cardiovascular Cardiovascular: Denies chest pain Respiratory/Chest Respiratory/Chest: Denies cough or dyspnea Gastrointestinal Gastrointestinal: Denies abdominal pain, diarrhea, nausea or vomiting Genitourinary Genitourinary ED: Denies dysuria Musculoskeletal Musculoskeletal: Reports other Details: Positive left foot pain Integumentary Reports other Details: Positive bruising left foot Neurologic Neurologic: Denies headache(s), paresthesias or weakness Hematologic/Lymphatic Hematologic/Lymphatic: Denies easy bleeding or easy bruising EXAM Physical Exam Const Vital Signs: 04/17/24 00:14 Temperature 97.9 F Temperature Source Temporal Pulse Rate 74 Respiratory Rate 18 Blood Pressure 162/93 H Blood Pressure Mean 116 Pulse Ox 98 Oxygen Delivery Method Room Air Positive well nourished and well developed General Appearance ED: well developed HEENT HEENT Narrative: Normocephalic atraumatic Eyes PERRL and EOMs intact bilaterally Neck supple Resp normal respiratory effort and clear to auscultation bilaterally Cardio regular rate and regular rhythm Extremity Extremity Narrative: Left lower extremity is neurovascularly intact. Patient has a 2 x 2 centimeter area of ecchymosis consistent with hematoma to the dorsal aspect of the left foot. There is pain on palpation at the site without obvious bony deformity or joint effusion. No subungual hematoma noted. No ligamentous laxity or tendon injury noted either. Remainder of the exam is normal Neuro oriented x3, CN's II-XII intact bilaterally and no sensory deficits noted Sensorium / Orientation: alert Motor Exam: strength 5/5 throughout Psych mental status grossly normal Skin Skin Narrative: Hematoma and ecchymosis to left foot as documented above MDM MDM MDM Narrative Medical decision making narrative: Patient arrived to the ER hypertensive but has a past medical history of this and otherwise with stable vitals. She had a mechanical injury to her left foot and therefore there is concern for fracture versus contusion. An x-ray was obtained which revealed soft tissue swelling without acute fracture or retained foreign body. By exam patient also does not have any type of subungual hematoma. Therefore at this time without acute fracture or ligamentous or tendon injury or subungual hematoma there is no need for further intervention and patient be placed in Tj wrap to prevent worsening swelling of the hematoma but is otherwise safe for discharge History & Record Review Discussion w/independent historian: Patient Radiography Diagnostic Testing: X-ray of the left foot as interpreted by the emergency medicine physician reveals soft tissue swelling without acute fracture dislocation or joint effusion Discharge Plan Triage Chief Complaint: Lower Extremity Injury ED Provider: Goznález Junior Dx/Rx/DC Orders Clinical Impression: Contusion of foot, left, Hematoma of left foot, Hypertension Instructions: ED Foot Contusion, ED Hematoma Prescriptions: No Action Therems-M 1 TABLET tablet 1 tab PO DAILY lisinopril 20 MG tablet 30 mg PO QHS sertraline 100 MG tablet 250 mg PO QHS hydrochlorothiazide 12.5 MG capsule 12.5 mg PO DAILY Cholecalciferol (Vitamin D3) [Vitamin D3] 5,000 UNIT capsule 1 cap PO DAILY fluticasone propion-salmeterol [Advair Diskus] 250-50 mcg/dose blister with device 1 inh INHALATION BID Patient Comments: INHALE 1 PUFF DIRECTED TWICE DAILY aspirin 325 mg Tablet 325 mg PO QHS selenium 200 mcg Tablet 200 mcg PO DAILY ascorbic acid (vitamin C) [Vitamin C] 500 mg Tablet 500 mg PO DAILY pantoprazole 40 mg tablet,delayed release (DR/EC) 40 mg PO BID Patient Comments: take 1 tablet by mouth twice a day BEFORE MEALS.TAKE ON AN EMPTY STOMACH, 30 MINUTES BEFORE A MEAL buspirone 10 mg tablet 15 mg PO BID Patient Comments: take 1 tablet by mouth three times a day zinc 50 mg Tablet 50 mg PO DAILY Probiotic 10 billion cell Capsule 10,000 mmu cells PO DAILY albuterol (refill) 90 mcg/actuation Aerosol 90 mcg INHALATION PRN PRN (Reason: SOB) prednisone 50 mg tablet 50 mg PO DAILY Qty: 5 0RF loratadine [Claritin RediTabs] 10 mg tablet,disintegrating 10 mg PO DAILY Qty: 30 0RF prednisone 20 mg tablet 40 mg PO DAILY 4 Days Qty: 8 0RF Primary Care Provider: Lamar Tam Referrals: Lamar Tam, PA [Primary Care Provider] - Activity Restrictions/Additional Instructions: Wear your Tj wrap for compression and padding and ice the area to reduce pain and speed healing. Return to the ER should you have any further concerns or worsening of symptoms Print Language: Icelandic Disposition Disposition: Home, Self Care
== END 2024-04-17 01:23 | disposition home or self-care (01) ==
PROVIDERS: Emergency Provider Emergency Medicine; PCP Physician Assistant; Visit Provider Emergency Medicine
DX: S90.32XA Contusion of left foot, initial encounter (principal); I10 Essential (primary) hypertension; Z86.73 Personal history of transient ischemic attack (TIA), and cerebral infarction without residual deficits; J45.909 Unspecified asthma, uncomplicated; W20.8XXA Other cause of strike by thrown, projected or falling object, initial encounter
CPT/HCPCS: 73630; 99282

== ENCOUNTER → 2025-01-24 | Outpatient (CLI) | payer MEDICAID, SELFPAY | END | disposition home or self-care (01) | LOC: LABSPEC 20:27 | PROVIDERS: PCP Physician Assistant; Visit Provider Otolaryngology Otolaryngology/Facial Plastic Surgery | DX: J02.9 Acute pharyngitis, unspecified (principal) | CPT/HCPCS: 87070 ==